=== PATIENT | male | born 2000 | race African-American/Black ===

== ENCOUNTER 2023-05-24 10:58 | Emergency (ER) | payer SELFPAY ==
[2023-05-24 11:01] VITALS: BP 119/67; PULSE 101; RESP 20; TEMP 37.7; O2SAT 99
--- NOTE | 2023-05-24 11:08 | ED.GENADULT ---
HPI - General Adult General Chief complaint: Unspecified Stated complaint: body aches Time Seen by Provider: 05/24/23 11:09 Source: patient Mode of arrival: ambulatory Limitations: no limitations History of Present Illness HPI narrative: Payal is a 22-year-old male patient presenting to the clinic today with complaints body aches, fever, and chills x2 days. Temperature is 37.7? C in the ER today. Denies any chest pain or shortness of breath Related Data Allergies Allergy/AdvReac Type Severity Reaction Status Date / Time No Known Allergies Allergy Verified 05/24/23 11:03 Review of Systems Review of Systems: Pertinent positives per HPI. Patient denies any rash, headache, visual changes, dizziness, cough, shortness of breath, chest pain, palpitations, nausea, vomiting, diarrhea, constipation, abdominal pain, or any urinary issues. PMFSH Comments At the time of my signature, I reviewed and agree with the nursing past medical, surgical, social, and family history. There is no relevant family history pertinent to the patient complaint. Exam Narrative: General: Well-developed, well nourished, in no apparent distress Head: Normocephalic, atraumatic Eyes: Pupils equally round and reactive to light bilaterally, EOM intact, sclera and conjunctive clear, no discharge, lids normal Ears: TMs intact and clear, ear canals clear, no drainage, grossly hearing normal. Nose: Nares patent, clear nasal discharge, no inflammation, no sinus tenderness. Mouth: Oral pharynx without lesions or masses, good dentition, MMM. Neck: Supple, trachea midline, no enlargement of anterior or posterior cervical nodes, no thyroid masses or goiter palpable. Cardio: Regular rate and rhythm, s1 and s2 normal, no murmur appreciated. Resp: Clear to auscultation bilaterally, no rhonchi, rales, wheezing or rubs Course Course Emergency Course: Portions of this record may have been created with voice recognition software. Vital Signs Vital signs: Vital Signs Temperature 37.7 C H 05/24/23 11:01 Pulse Rate 101 H 05/24/23 11:01 Respiratory Rate 20 05/24/23 11:01 Blood Pressure 119/67 05/24/23 11:01 Pulse Oximetry 99 05/24/23 11:01 Oxygen Delivery Room Air 05/24/23 11:01 Temperature 37.7 C H 05/24/23 11:01 Pulse Rate 101 H 05/24/23 11:01 Respiratory Rate 20 05/24/23 11:21 Blood Pressure 119/67 05/24/23 11:01 Pulse Oximetry 99 05/24/23 11:01 Oxygen Delivery Room Air 05/24/23 11:01 Vital signs reviewed Medical Decision Making MDM Narrative Medical decision making narrative: At the time of visit patient is resting comfortably on the exam table. Patient appears to be nontoxic. Lab: COVID, flu, and strep test were performed. Influenza B was positive. COVID and RSV are negative. Strep test is negative. Supportive measures were discussed with the patient and they voiced understanding discharge instructions and agrees to treatment plan. Return precautions reviewed Differential Diagnosis Differential Diagnosis: Influenza, URI, strep, pharyngitis Vital Signs Vital Signs: Vital Signs Temperature 37.7 C H 05/24/23 11:01 Pulse Rate 101 H 05/24/23 11:01 Respiratory Rate 20 05/24/23 11:01 Blood Pressure 119/67 05/24/23 11:01 Pulse Oximetry 99 05/24/23 11:01 Oxygen Delivery Room Air 05/24/23 11:01 Temperature 37.7 C H 05/24/23 11:01 Pulse Rate 101 H 05/24/23 11:01 Respiratory Rate 20 05/24/23 11:21 Blood Pressure 119/67 05/24/23 11:01 Pulse Oximetry 99 05/24/23 11:01 Oxygen Delivery Room Air 05/24/23 11:01 Lab Data Labs: Lab Results 05/24/23 05/24/23 Range/Units 11:11 11:16 Influenza A (RT-PCR) Negative (Negative) Influenza B (RT-PCR) Positive A (Negative) RSV (RT-PCR) Negative (Negative) SARS-CoV-2 RNA (RT-PCR) Negative (Negative) Group A Strep (PCR) Not detected (Negative) Discharge Plan Discharge Clini
[2023-05-24 11:21] VITALS: RESP 20
[2023-05-24 11:51] LABS: Strep Group A RT-PCR NOT DETECTED (Negative)
[2023-05-24 12:03] LABS: Influenza A QL RT-PCR Negative (Negative); Influenza B QL RT-PCR Positive (Negative); RSV RNA, RT-PCR Negative (Negative); SARS-CoV-2 RNA PCR Negative (Negative)
== END 2023-05-24 13:56 | disposition home or self-care (01) ==
PROVIDERS: Emergency Provider Nurse Practitioner Family
DX: J10.1 Influenza due to other identified influenza virus with other respiratory manifestations (principal); Z20.822 Contact with and (suspected) exposure to COVID-19
CPT/HCPCS: 87637; 87651; 99283